=== PATIENT | female | born 1985 | race Caucasian/White ===

== ENCOUNTER 2022-11-03 17:59 | Emergency (ER) | payer OTHER ==
[~2022-11-03] VITALS: Ht 165.1 cm; Wt 83.9 kg
[~2022-11-03 17:59] MED LIST: BCP; CIPR500 PO; CRUTCH4 UD; CYCL10 PO; Esgic Tablet1 EACH PO; FERR325 PO; GABA300T24; IBUP400 PO; IRON150C PO; Multivitamin1 EAC1 PO; NAPR500 PO; Percocet 5-3251 EACH PO; Prednisone20 MG PO; TRAM50 PO; Tussionex Penn480 ML PO; Ultram50 MG PO; VIIBRYD10 MG; Zofran Odt4 MG SL
== END 2022-11-03 19:57 | disposition home or self-care (01) ==
LOC: ER 17:59
DX: R07.9 Chest pain, unspecified (principal); F17.200 Nicotine dependence, unspecified, uncomplicated; Z88.2 Allergy status to sulfonamides; Z91.09 Other allergy status, other than to drugs and biological substances; V89.2XXA Person injured in unspecified motor-vehicle accident, traffic, initial encounter
CPT/HCPCS: 71046; 72040; A9270; J1885

== ENCOUNTER 2023-04-25 17:18 | Emergency (ER) | payer OTHER ==
[~2023-04-25] VITALS: Ht 172.7 cm; Wt 81.7 kg
[~2023-04-25 17:18] MED LIST changes: +AMOCLA875 PO; +Cyclobenzaprine5 MG; +HYDROCODONE-AC1 EA19; +ONDA4ODT MM
[2023-04-25 17:21] VITALS: BP 145/99
== END 2023-04-25 21:29 | disposition home or self-care (01) ==
LOC: ER 17:18
DX: G43.909 Migraine, unspecified, not intractable, without status migrainosus (principal); F17.210 Nicotine dependence, cigarettes, uncomplicated; Z88.2 Allergy status to sulfonamides; Z91.09 Other allergy status, other than to drugs and biological substances; Z79.899 Other long term (current) drug therapy
CPT/HCPCS: 96372; 99283-25; A9270; J1885; Q0164

== ENCOUNTER 2024-09-08 13:00 | Emergency (ER) | payer OTHER ==
[~2024-09-08] VITALS: Ht 167.6 cm; Wt 72.6 kg
[2024-09-08 13:35] VITALS: BP 129/95
[2024-09-08 14:29] LABS: CORONAVIRUS COVID-19 AG Negative (NEGATIVE); INFLUENZA A AG Negative (NEGATIVE); INFLUENZA B AG Negative (NEGATIVE)
== END 2024-09-08 15:47 | disposition home or self-care (01) ==
LOC: ER 13:00
PROVIDERS: Student in an Organized Health Care Education/Training Program
DX: R05.9 Cough, unspecified (principal); F17.210 Nicotine dependence, cigarettes, uncomplicated; Z79.899 Other long term (current) drug therapy; Z88.2 Allergy status to sulfonamides; Z91.048 Other nonmedicinal substance allergy status
CPT/HCPCS: 71046; 87428-QW; 99283-25